=== PATIENT | female | born 1940 | race Caucasian/White ===

== ENCOUNTER 2016-09-29 13:34 | Outpatient (CLI) | payer MEDICARE, OTHER | END 2016-09-29 13:35 | disposition home or self-care (01) | DX: Z13.820 Encounter for screening for osteoporosis (principal); Z78.0 Asymptomatic menopausal state; M85.89 Other specified disorders of bone density and structure, multiple sites ==

== ENCOUNTER 2016-09-29 13:42 | Outpatient (CLI) | payer MEDICARE, OTHER | END 2016-09-29 13:43 | disposition home or self-care (01) | DX: Z12.31 Encounter for screening mammogram for malignant neoplasm of breast (principal) ==

== ENCOUNTER 2017-07-16 14:43 | Outpatient (CLI) | payer MEDICARE, OTHER ==
--- NOTE | 2017-07-16 15:40 | XRAY Report ---
TWO VIEW CHEST: 07/16/2017 CLINICAL INDICATION: History of right lower lobe pneumonia. FINDINGS: Frontal and lateral views of the chest demonstrate a normal cardiac silhouette. The lungs are clear. No effusion or pneumothorax is present. IMPRESSION: NORMAL CHEST. JOB #: [id number] EXT JOB #:[id number]
== END 2017-07-16 14:44 | disposition home or self-care (01) ==
LOC: DI 14:43
PROVIDERS: ATTEND Family Medicine
DX: Z09 Encounter for follow-up examination after completed treatment for conditions other than malignant neoplasm (principal); Z87.01 Personal history of pneumonia (recurrent)
CPT/HCPCS: 71020